=== PATIENT | female | born 1960 | race Caucasian/White ===

== ENCOUNTER 2023-03-27 12:34 | Day surgery (SDC) | payer MEDICARE | END 2023-03-27 12:45 | disposition home or self-care (01) | LOC: SDC-PAIN 12:34 | PROVIDERS: ATTEND Psychiatry & Neurology Pain Medicine | DX: Z53.8 Procedure and treatment not carried out for other reasons (principal) ==

== ENCOUNTER 2023-04-17 10:20 | Day surgery (SDC) | payer MEDICARE ==
[2023-04-17] MEDS ORDERED: Depo-Medrol 40 MG/ML IM ONE (10:21)
[2023-04-17] MEDS ORDERED: BUPIVACAINE 0.5% VIAL IJ ONE (10:21)
[2023-04-17] MEDS ORDERED: DIPRIVAN 200 MG/20 ML IV ONE (11:57)
[2023-04-17] MEDS ORDERED: Lactated Ringers 1,000 ML IV ONE (15:05)
--- NOTE | 2023-04-17 19:18 | XRAY ---
Indication: Bilateral SI joint injection. Intraoperative fluoroscopy provided for 12 seconds. 4 digital spot image submitted for interpretation demonstrates posterior needle tip projecting over the left and right SI joints. Correlate with intraoperative findings/report.
--- NOTE | 2023-04-17 19:25 | XRAY ---
12 seconds of fluoroscopy was used in surgery for a bilateral sacroiliac joint injection.
== END 2023-04-17 12:25 | disposition home or self-care (01) ==
LOC: SDC-PAIN 10:20
PROVIDERS: ATTEND Psychiatry & Neurology Pain Medicine
DX: M46.1 Sacroiliitis, not elsewhere classified (principal); Z79.899 Other long term (current) drug therapy
CPT/HCPCS: 27096; 72202; 77002; G0260; J1030; J2704